=== PATIENT | male | born 1965 | race Caucasian/White ===

== ENCOUNTER → 2023-02-20 23:55 | Outpatient (CLI) | payer BC, SELFPAY ==
[2023-02-20 20:02] LABS: Alanine Aminotransferase 28 U/L (12-78); Albumin Level 4.1 g/dl (3.5-5.0); Albumin/Globulin Ratio 1.4 (1.1-1.8); Alkaline Phosphatase 103 U/L (38-126); Anion Gap 13.1 mEq/L (5-15); Aspartate Amino Transferase 33 U/L (17-59); Bilirubin,Total 0.3 mg/dl (0.2-1.3); Blood Urea Nitrogen 13 mg/dl (9-20); Calcium 8.5 mg/dl (8.4-10.2); Carbon Dioxide 24 mmol/L (22.0-30.0); Chloride 105 mmol/L (98-107); Chol/HDL Ratio 2.9 (1-3.5); Cholesterol 213 mg/dl (140-200); Estimated Glomerular Filt Rate 87 ml/min (>60); GFR (African American) 105 ML/MIN (>60); Glucose 88 mg/dl (74-100); HDL Cholesterol 73 mg/dl (40-60); Potassium 4.1 mmoL/L (3.5-5.1); Sodium 138 mmol/L (136-145); Total Protein,Serum 7.1 g/dl (6.3-8.2); Triglycerides 43 mg/dl (30-150); VLDL Cholesterol 9 mg/dL (0-40)
[2023-02-20 20:08] LABS: Basophils % 0.6 % (0.1-2.0); Eosinophils # 0.2 K/mm3 (0.0-0.4); Eosinophils % 3.1 % (0.1-12.0); Hematocrit 48.6 % (42.0-52.0); Hemoglobin 16.3 g/dL (14.1-18.0); Lymphocytes # 1.5 K/mm3 (0.7-4.5); Lymphocytes % 25.9 % (10-50); Mean Corpuscular HGB Conc 33.5 g/dL (31.8-35.4); Mean Corpuscular Hemoglobin 31.9 pg (27.0-31.2); Mean Corpuscular Volume 95.3 fl (80-94); Mean Platelet Volume 9.3 fl (7.4-10.4); Monocytes # 0.3 K/mm3 (0.1-1.0); Monocytes % 5.6 % (1.7-9.3); Neutrophils # 3.7 K/mm3 (1.8-7.8); Neutrophils % 64.8 % (37.0-80.0); Platelet Count 231 K/mm3 (142-424); Red Blood Count 5.11 M/mm3 (4.60-6.20); White Blood Count 5.7 K/mm3 (4.8-10.8)
[2023-02-20 20:13] LABS: Direct LDL Cholesterol 109.58 mg/dL (100-129)
[2023-02-20 20:33] LABS: Prostate Specific Ag Screen 0.2 ng/ml (0.0-4.0)
== END ==
PROVIDERS: PCP Family Medicine; Visit Provider Family Medicine
DX: Z76.89 Persons encountering health services in other specified circumstances (principal); Z00.00 Encounter for general adult medical examination without abnormal findings; Z12.5 Encounter for screening for malignant neoplasm of prostate
CPT/HCPCS: 80053; 80061; 85025; G0103

== ENCOUNTER 2023-04-28 09:13 | Day surgery (SDC) | payer BC, SELFPAY ==
[2023-04-26 13:04] VITALS: BMI 27.8
[2023-04-28 09:51] VITALS: BP 151/86; PULSE 66; RESP 16; TEMP 36.4; O2SAT 99
--- NOTE | 2023-04-28 09:59 | EXP.ANES.CKL ---
[facility] Disclaimer: The information contained in this section may have been updated after the patient was seen, as this information can be updated by other users. Medical History History of gastroesophageal reflux (GERD) History of skin cancer Surgical History History of left hip replacement Family History Father Cancer Hyperlipidemia Grandmother Diabetes Brother Heart attack Hypertension Social History Smoking Status: Never smoker alcohol intake: current substance use type: denies use current occupational status: employed and retired Travel in the last 8 weeks: None [facility] Anesthesia Checklist Patient Identification Patient Identification: Arm Band and Verbal (Name & ) Structural Data Admitted From: Home Planned Operative Procedure/s: colonoscopy Consent for Planned Operative Procedure(s) Verified: Yes NPO Status Verified Time NPO: 00:00 Additional verifications Anesthesia Reactions: No Airway Assessment Mallampati Score:: Class I C-Spine Mobility Assessed: Yes TMJ Mobility Assessed: Yes Dentition: Good Dentition Neurological Assessment Level of Consciousness: Awake Hx Seizures: No Numbness or tingling in extremities: No Anesthesia Plan Anesthesia Risk discussed: Yes Anesthesia Plan: Verified ASA Class: I Anesthesia Type: MAC
[2023-04-28 10:06] VITALS: O2SAT 97
[2023-04-28 10:28] VITALS: BP 102/61; PULSE 63; RESP 15; TEMP 36.3; O2SAT 93
--- NOTE | 2023-04-28 10:29 | P.PCN_ITS ---
Procedure: Date: 04/28/23 Patient Date of :: 1965 Procedure Performed:: Total colonoscopy to terminal ileum with polypectomy using snare Indications:: Patient is a 57-year-old male referred for initial screening colonoscopy. He states that his sister has had a colonoscopy and has had polyps removed. Performing Provider:: Kiel Manriquez MD Referring Provider:: Tristan Das MD Sedation:: MAC sedation Procedure:: Patient history was obtained and appropriate physical examination was performed. Patient's medications and allergies were reviewed. Informed consent was obtained after explaining the benefits, alternatives, and risks of the procedure including, but not limited to, bleeding, perforation, missed lesions, and adverse reaction to anesthesia medications. Patient was transported to endoscopy procedure room. Patient was connected to monitoring devices. Throughout the procedure the patient's blood pressure, pulse, and oxygen saturations were monitored continuously. Patient identificat ion and planned procedure were verified by the staff. Patient was positioned in lateral decubitus position. Digital anorectal exam was performed. Variable stiffness Olympus colonoscope was inserted and advanced under direct visualization to the cecum. Adequacy of the colonic preparation was noted. The colonoscope was advanced a short distance into the terminal ileum. The colonoscope was then slowly withdrawn while carefully examining the color, texture, anatomy, and integrity of the mucosoa circumferentially. Within the rectum retroflexion was performed. Colonoscope was then withdrawn. . There was some mild sigmoid diverticulosis. He had what appeared to be hyperplastic rectosigmoid polyp but this was moderate-sized and removed with cold snare. . Findings:: Mild sigmoid diverticulosis Hyperplastic appearing rectosigmoid polyp removed with cold snare Recommendations:: Pending the pathology likely repeat colonoscopy in 5 years Complications:: None Estimated blood obtained (mL): 2 Colonoscopy Component Colonoscopy Component Was a colonoscopy performed during today's procedure?: Yes Recommended follow up colonoscopy of at least 10 years?: No If no, follow up colonoscopy recommended in ___ years?: 5 Reason for not recommending >/= 10 yr follow-up interval?: See above
[2023-04-28 10:38] VITALS: BP 101/64; PULSE 65; RESP 17; O2SAT 93
[2023-04-28 10:48] VITALS: BP 125/78; PULSE 50; RESP 16; O2SAT 95
[2023-04-28 10:59] VITALS: BP 117/78; PULSE 54; RESP 17; O2SAT 97
== END 2023-04-28 11:05 | disposition home or self-care (01) ==
PROVIDERS: PCP Family Medicine; Visit Provider Surgery
PROC: 0DJD8ZZ Inspection of Lower Intestinal Tract, Via Natural or Artificial Opening Endoscopic (ICD-10-PCS; CPT 45385; principal; 2023-04-28 10:30)
DX: Z12.11 Encounter for screening for malignant neoplasm of colon (principal); K57.30 Diverticulosis of large intestine without perforation or abscess without bleeding; D12.7 Benign neoplasm of rectosigmoid junction
CPT/HCPCS: 45385; J2704